=== PATIENT | female | born 1980 | race Caucasian/White ===

== ENCOUNTER 2019-12-08 20:36 | Emergency (ER) | payer OTHER ==
[2019-12-08] MEDS ORDERED: Sodium Chloride 0.9% 1,000 ML IV ONE (20:44)
[2019-12-08] MEDS ORDERED: Aspirin 81 MG Tab.Chew PO ONE (20:44)
[2019-12-08] MEDS ORDERED: Nitroglycerin 0.4 MG Tab.SL SL PRN (20:44)
--- NOTE | 2019-12-08 20:47 | EDM.PDOC ---
ED HPI GENERAL MEDICAL PROBLEM - General Chief Complaint: Chest Pain Stated Complaint: PRESSURE IN CHEST,LEFT ARM PAIN Time Seen by Provider: 12/08/19 20:40 Source of Information: Reports: Patient History Limitations: Reports: No Limitations - History of Present Illness INITIAL COMMENTS - FREE TEXT/NARRATIVE: HISTORY AND PHYSICAL: History of present illness: Patient is a 39-year-old female who presents to the emergency room with complaints of left chest wall pressure that radiates into her neck, shoulder and down her left arm. Symptoms started with a headache approximately an hour ago. She does not recall doing any strenuous activity. Nothing seems to make the "pressure" improve. She does feel slightly nauseated and lightheaded. She mentions she has a history of anxiety and believes this could be related although it does not feel the same as when she has had panic attacks previously. Patient denies any fever, chills, change in vision, syncope or near syncope. Denies any back pain, shortness of breath or cough. Denies any abdominal pain, vomiting, diarrhea, constipation or dysuria. Has not noted any blood in urine or stool. She reports there is a chance of , although unlikely. Patient has been eating and drinking appropriately. Patient has no personal history of heart disease. Review of systems: As per history of present illness and below otherwise all systems reviewed and negative. Past medical history: As per history of present illness and as reviewed below otherwise noncontributory. Surgical history: As per history of present illness and as reviewed below otherwise noncontributory. Social history: See social history for further information Family history: As per history of present illness and as reviewed below otherwise noncontributory. Physical exam: General: Well-developed and well-nourished 39-year-old female. Alert and oriented. Nontoxic-appearing and in no acute distress. HEENT: Atraumatic, normocephalic, pupils equal and reactive bilaterally, negative for conjunctival pallor or scleral icterus, mucous membranes moist, TMs normal bilaterally, throat clear, neck supple, nontender, trachea midline. No drooling or trismus noted. No meningeal signs. No hot potato voice noted. Lungs: Clear to auscultation, breath sounds equal bilaterally, chest nontender. Heart: S1S2, regular rate and rhythm without overt murmur Abdomen: Soft, nondistended, nontender. Negative for masses or hepatosplenomegaly. Negative for costovertebral tenderness. Pelvis: Stable nontender. Skin: Intact, warm, dry. No lesions or rashes noted. Extremities: Atraumatic, moves all extremities per self without difficulty or deficits, negative for cords or calf pain. Neurovascular unremarkable. Neuro: Awake, alert, oriented. Cranial nerves II through XII unremarkable. Cerebellum unremarkable. Motor and sensory unremarkable throughout. Exam nonfocal. Notes: Chest x-ray shows no acute findings. Patient did not find any relief with the nitroglycerin. She continues to state that it is a heavy pressure and not painful. Patient's lab work is unremarkable. She is asymptomatic with having a little bit of bacteria in her urine so a culture will be added at this time. We will call her with a prescription if needed. Her pain is a 0 out of 10. We did discuss the need for close follow-up with her primary care provider and/or drum sander setter. We reviewed signs and symptoms that would prompt her to return to the emergency department. Supportive care measures were reviewed and discussed. She voices understanding and is agreeable to plan of care. Denies any further questions or concerns at this time. Diagnostics: CBC, CMP, D.Dimer, Troponin, EKG, CXR, UA, HCGU, TSH Therapeutics: NS, Nitro Impression: Chest pain, unspecified Plan: 1. Today we checked your CBC, CMP (electrolyte/liver function), TSH, Troponin ( heart enzyme), D.Dimer (blood clot), urine, chest x-ray, and EKG : All of which were in normal limits. Your urine did show small amount of bacteria; a culture has been added. We will call you if this requires antibiotics. 2. I would like you to follow up with your primary care provider in the next week for re-evaluation and possibly set up appointment with drum sander setter. 3. If your chest pain should return, worsen, or new symptoms develop - PLEASE CALL 911 and return to the ED. Definitive disposition and diagnosis as appropriate pending reevaluation and review of above. Onset: Today Left Chest Pain Score (Numeric/FACES): 2 - Related Data Allergies Allergy/AdvReac Type Severity Reaction Status Date / Time No Known Allergies Allergy Verified 12/08/19 20:43 Home Meds: Home Meds Escitalopram Oxalate 10 mg PO DAILY 12/08/19 [History] atorvaSTATin Calcium [Atorvastatin Calcium] 20 mg PO DAILY 12/08/19 [History] ED ROS GENERAL - Review of Systems Review Of Systems: Comprehensive ROS is negative, except as noted in HPI. ED EXAM, GENERAL - Physical Exam Exam: See Below (See dictation) Course - Vital Signs Last Recorded V/S: Last Vital Signs Temp 97.4 F 12/08/19 20:41 Pulse 101 H 12/08/19 21:30 Resp 14 12/08/19 21:30 BP 132/77 12/08/19 21:30 Pulse Ox 96 12/08/19 21:30 - Orders/Labs/Meds Orders: Active Orders 24 hr Category Date Time Status EKG Documentation Completion [RC] STAT Care 12/08/19 20:44 Active CULTURE URINE [RM] Stat Lab 12/08/19 20:55 Received Nitroglycerin [Nitrostat] Med 12/08/19 20:44 Active 0.4 mg SL Q5M PRN Sodium Chloride 0.9% [Normal Saline] 1,000 ml Med 12/08/19 20:44 Active IV STAT Medication Orders Sodium Chloride (Normal Saline) 1,000 mls @ 999 mls/hr IV STAT ONE Stop: 12/08/19 21:44 Last Admin: 12/08/19 20:58 Dose: 999 mls/hr Nitroglycerin (Nitrostat) 0.4 mg SL Q5M PRN PRN Reason: Chest Pain Last Admin: 12/08/19 20:57 Dose: 0.4 mg Labs: Laboratory Tests 12/08/19 12/08/19 12/08/19 Range/Units 20:52 20:52 20:52 WBC 8.32 (4.0-11.0) K/uL RBC 4.34 (4.30-5.90) M/uL Hgb 12.8 (12.0-16.0) g/dL Hct 37.8 (36.0-46.0) % MCV 87.1 (80.0-98.0) fL MCH 29.5 (27.0-32.0) pg MCHC 33.9 (31.0-37.0) g/dL RDW Std Deviation 41.8 (28.0-62.0) fl RDW Coeff of Sarah 13 (11.0-15.0) % Plt Count 238 (150-400) K/uL MPV 11.10 (7.40-12.00) fL Neut % (Auto) 58.8 (48.0-80.0) % Lymph % (Auto) 34.6 (16.0-40.0) % Brule % (Auto) 4.1 (0.0-15.0) % Eos % (Auto) 2.3 (0.0-7.0) % Baso % (Auto) 0.2 (0.0-1.5) % Neut # (Auto) 4.9 (1.4-5.7) K/uL Lymph # (Auto) 2.9 H (0.6-2.4) K/uL Brule # (Auto) 0.3 (0.0-0.8) K/uL Eos # (Auto) 0.2 (0.0-0.7) K/uL Baso # (Auto) 0.0 (0.0-0.1) K/uL Nucleated RBC % 0.0 /100WBC Nucleated RBCs # 0 K/uL D-Dimer, Quantitative 0.46 (0.0-0.50) mg/L FEU Sodium 138 (136-145) mmol/L Potassium 3.6 (3.5-5.1) mmol/L Chloride 100 (98-107) mmol/L Carbon Dioxide 21.3 (21.0-32.0) mmol/L BUN 12 (7.0-18.0) mg/dL Creatinine 1.1 H (0.6-1.0) mg/dL Est Cr Clr Drug Dosing 58.71 mL/min Estimated GFR (MDRD) 55.0 ml/min Glucose 200 H (74-106) mg/dL Calcium 8.5 (8.5-10.1) mg/dL Total Bilirubin 0.3 (0.2-1.0) mg/dL AST 14 L (15-37) IU/L ALT 25 (14-63) IU/L Alkaline Phosphatase 85 (46-116) U/L Troponin I < 0.050 (0.000-0.056) ng/mL Total Protein 7.4 (6.4-8.2) g/dL Albumin 3.8 (3.4-5.0) g/dL Globulin 3.6 (2.6-4.0) g/dL Albumin/Globulin Ratio 1.1 (0.9-1.6) TSH 3rd Generation 1.73 (0.36-3.74) uIU/mL Urine Color Urine Appearance Urine pH (5.0-8.0) Ur Specific [place] (1.001-1.035) Urine Protein (NEGATIVE) mg/dL Urine Glucose (UA) (NEGATIVE) mg/dL Urine Ketones (NEGATIVE) mg/dL Urine Occult Blood (NEGATIVE) Urine Nitrite (NEGATIVE) Urine Bilirubin (NEGATIVE) Urine Urobilinogen (<2.0) EU/dL Ur Leukocyte Esterase (NEGATIVE) Urine RBC (0-2/HPF) Urine WBC (0-5/HPF) Ur Epithelial Cells (NONE-FEW) Urine Bacteria (NEGATIVE) Urine HCG, Qual (NEGATIVE) 12/08/19 12/08/19 Range/Units 20:55 20:55 WBC (4.0-11.0) K/uL RBC (4.30-5.90) M/uL Hgb (12.0-16.0) g/dL Hct (36.0-46.0) % MCV (80.0-98.0) fL MCH (27.0-32.0) pg MCHC (31.0-37.0) g/dL RDW Std Deviation (28.0-62.0) fl RDW Coeff of Sarah (11.0-15.0) % Plt Count (150-400) K/uL MPV (7.40-12.00) fL Neut % (Auto) (48.0-80.0) % Lymph % (Auto) (16.0-40.0) % Brule % (Auto) (0.0-15.0) % Eos % (Auto) (0.0-7.0) % Baso % (Auto) (0.0-1.5) % Neut # (Auto) (1.4-5.7) K/uL Lymph # (Auto) (0.6-2.4) K/uL Brule # (Auto) (0.0-0.8) K/uL Eos # (Auto) (0.0-0.7) K/uL Baso # (Auto) (0.0-0.1) K/uL Nucleated RBC % /100WBC Nucleated RBCs # K/uL D-Dimer, Quantitative (0.0-0.50) mg/L FEU Sodium (136-145) mmol/L Potassium (3.5-5.1) mmol/L Chloride (98-107) mmol/L Carbon Dioxide (21.0-32.0) mmol/L BUN (7.0-18.0) mg/dL Creatinine (0.6-1.0) mg/dL Est Cr Clr Drug Dosing mL/min Estimated GFR (MDRD) ml/min Glucose (74-106) mg/dL Calcium (8.5-10.1) mg/dL Total Bilirubin (0.2-1.0) mg/dL AST (15-37) IU/L ALT (14-63) IU/L Alkaline Phosphatase (46-116) U/L Troponin I (0.000-0.056) ng/mL Total Protein (6.4-8.2) g/dL Albumin (3.4-5.0) g/dL Globulin (2.6-4.0) g/dL Albumin/Globulin Ratio (0.9-1.6) TSH 3rd Generation (0.36-3.74) uIU/mL Urine Color YELLOW Urine Appearance SLT CLOUDY Urine pH 6.0 (5.0-8.0) Ur Specific [place] 1.010 (1.001-1.035) Urine Protein NEGATIVE (NEGATIVE) mg/dL Urine Glucose (UA) NEGATIVE (NEGATIVE) mg/dL Urine Ketones NEGATIVE (NEGATIVE) mg/dL Urine Occult Blood NEGATIVE (NEGATIVE) Urine Nitrite NEGATIVE (NEGATIVE) Urine Bilirubin NEGATIVE (NEGATIVE) Urine Urobilinogen 0.2 (<2.0) EU/dL Ur Leukocyte Esterase TRACE H (NEGATIVE) Urine RBC 0-1 (0-2/HPF) Urine WBC 2-4 (0-5/HPF) Ur Epithelial Cells FEW (NONE-FEW) Urine Bacteria FEW (NEGATIVE) Urine HCG, Qual NEGATIVE (NEGATIVE) Meds: Medications Generic Name Dose Route Start Last Admin Trade Name Freq PRN Reason Stop Dose Admin Sodium Chloride 1,000 mls @ 999 mls/hr 12/08/19 20:44 12/08/19 20:58 Normal Saline IV 12/08/19 21:44 999 mls/hr STAT ONE Administration Nitroglycerin 0.4 mg 12/08/19 20:44 06/05/20 20:57 Nitrostat SL 0.4 mg Q5M PRN Administration Chest Pain Discontinued Medications Generic Name Dose Route Start Last Admin Trade Name Kate PRN Reason Stop Dose Admin Aspirin 324 mg 12/08/19 20:44 12/08/19 20:57 Aspirin PO 12/08/19 20:45 324 mg ONETIME ONE Administration Departure - Departure Time of Disposition: 21:44 Disposition: Home, Self-Care 01 Clinical Impression: Chest pain, unspecified Qualifiers: Chest pain type: unspecified Qualified Code(s): R07.9 - Chest pain, unspecified Instructions: Nonspecific Chest Pain, Adult, [id number] Forms: ED Department Discharge Additional Instructions: The following information is given to patients seen in the emergency department who are being discharged to home. This information is to outline your options for follow-up care. We provide all patients seen in our emergency department with a follow-up referral. The need for follow-up, as well as the timing and circumstances, are variable depending upon the specifics of your emergency department visit. If you don't have a primary care physician on staff, we will provide you with a referral. We always advise you to contact your personal physician following an emergency department visit to inform them of the circumstance of the visit and for follow-up with them and/or the need for any referrals to a consulting specialist. The emergency department will also refer you to a specialist when appropriate. This referral assures that you have the opportunity for follow-up care with a specialist. All of these measure are taken in an effort to provide you with optimal care, which includes your follow-up. Under all circumstances we always encourage you to contact your private physician who remains a resource for coordinating your care. When calling for follow-up care, please make the office aware that this follow-up is from your recent emergency room visit. If for any reason you are refused follow-up, please contact the [facility] Emergency Department at and asked to speak to the emergency department charge nurse. [facility] Primary Care [address] [place] [id number] [address] [place] [address] 1. Today we checked your CBC (hemoglobin/white count), CMP (electrolyte/liver function), TSH (thyroid), Troponin (heart enzyme), D.Dimer (assess risk of blood clot), urine, chest x-ray, and EKG : All of which were in normal limits. Your urine did show small amount of bacteria; a culture has been added. We will call you if this requires antibiotics. 2. I would like you to follow up with your primary care provider in the next week for re-evaluation and possibly set up appointment with drum sander setter. 3. If your chest pain should return, worsen, or new symptoms develop - PLEASE CALL 911 and return to the ED. Sepsis Event Note - Evaluation Sepsis Screening Result: No Definite Risk - Focused Exam Vital Signs: Vital Signs Temp Pulse Resp BP BP Pulse Ox 12/08/19 21:30 101 H 14 132/77 96 12/08/19 20:57 157/98 H 12/08/19 20:41 97.4 F 109 H 20 157/98 H 97 Date Exam was Performed: 12/08/19 Time Exam was Performed: 21:43 - My Orders Last 24 Hours: My Active Orders 12/08/19 20:44 EKG Documentation Completion [RC] STAT Nitroglycerin [Nitrostat] 0.4 mg SL Q5M PRN Sodium Chloride 0.9% [Normal Saline] 1,000 ml IV STAT 12/08/19 20:55 CULTURE URINE [RM] Stat - Assessment/Plan Last 24 Hours: My Active Orders 12/08/19 20:44 EKG Documentation Completion [RC] STAT Nitroglycerin [Nitrostat] 0.4 mg SL Q5M PRN Sodium Chloride 0.9% [Normal Saline] 1,000 ml IV STAT 12/08/19 20:55 CULTURE URINE [RM] Stat
--- NOTE | 2019-12-08 21:18 | CR ---
Chest: Portable view of the chest was obtained. Comparison: No prior chest imaging is available. Heart size and mediastinum are normal. Lungs are clear with no acute parenchymal change. Bony structures are grossly intact. Impression: 1. Nothing acute is appreciated on portable chest x-ray. Diagnostic code #1 This report was dictated in MDT
[2019-12-08 21:35] LABS: BLOOD UREA NITROGEN,BUN 12 mg/dL (7.0-18.0); CARBON DIOXIDE,CO2 21.3 mmol/L (21.0-32.0); CHLORIDE,CL 100 mmol/L (98-107); GLUCOSE RANDOM 200 mg/dL (74-106); POTASSIUM,K 3.6 mmol/L (3.5-5.1); SODIUM,NA 138 mmol/L (136-145)
== END 2019-12-08 21:55 | disposition home or self-care (01) ==
LOC: MW.ED 20:36
DX: R07.89 Other chest pain (principal)
CPT/HCPCS: 36415; 71045; 80053; 81001; 81025; 84443; 84484; 85025; 85379; 87086; 87088; 87186; 93005; 99285; A9270; J7030; 99283

== ENCOUNTER 2021-03-06 12:37 | Emergency (ER) | payer OTHER ==
--- NOTE | 2021-03-06 15:11 | EDM.PDOC ---
ED HPI GENERAL MEDICAL PROBLEM - General Chief Complaint: General Stated Complaint: TESTED POSITIVE FOR COVID Time Seen by Provider: 03/06/21 14:54 Source of Information: Reports: Patient History Limitations: Reports: No Limitations - History of Present Illness INITIAL COMMENTS - FREE TEXT/NARRATIVE: 40-year-old female presents for shortness of breath and cough in setting of kn own COVID-19 infection. Patient first began feeling symptomatic 5 days ago. She went for testing 4 days ago. It was resulted yesterday is positive. Patient notes fevers, chills, shortness of breath, cough. - Related Data Allergies Allergy/AdvReac Type Severity Reaction Status Date / Time No Known Allergies Allergy Verified 03/06/21 14:06 Home Meds: Home Meds Escitalopram Oxalate 10 mg PO DAILY 12/08/19 [History] atorvaSTATin Calcium [Atorvastatin Calcium] 20 mg PO DAILY 12/08/19 [History] Past Medical History HEENT History: Reports: None Cardiovascular History: Reports: High Cholesterol Respiratory History: Reports: None BACK TUFTER History: Reports: Endometrial Ablation, Endometriosis, Musculoskeletal History: Reports: None Neurological History: Reports: None Psychiatric History: Reports: Anxiety Endocrine/Metabolic History: Reports: None Hematologic History: Reports: None Immunologic History: Reports: None Oncologic (Cancer) History: Reports: None Dermatologic History: Reports: None - Infectious Disease History Infectious Disease History: Reports: Chicken Pox - Past Surgical History Head Surgeries/Procedures: Reports: None GI Surgical History: Reports: Cholecystectomy Female Surgical History: Reports: Endometrial Ablation Social & Family History - Family History Family Medical History: No Pertinent Family History - Tobacco Use Tobacco Use Status *Q: Never Tobacco User Second Hand Smoke Exposure: No - Recreational Drug Use Recreational Drug Use: No ED ROS GENERAL - Review of Systems Review Of Systems: Comprehensive ROS is negative, except as noted in HPI. ED EXAM, GENERAL - Physical Exam Exam: See Below Exam Limited By: No Limitations General Appearance: Alert, WD/WN, No Apparent Distress Ears: Hearing Grossly Normal Throat/Mouth: Normal Voice, No Airway Compromise Head: Atraumatic, Normocephalic Neck: Normal Inspection Respiratory/Chest: No Respiratory Distress, Lungs Clear, Normal Breath Sounds, No Accessory Muscle Use Cardiovascular: Normal Peripheral Pulses, Regular Rate, Rhythm Extremities: Normal Inspection Neurological: Alert, Normal Cognition, Normal Gait Psychiatric: Normal Affect, Normal Mood Skin Exam: Warm, Dry, Intact, Normal Color Course - Vital Signs Last Recorded V/S: Last Vital Signs Temp 99.9 F 03/06/21 14:04 Pulse 112 H 03/06/21 14:59 Resp 18 03/06/21 14:59 BP 155/93 H 03/06/21 14:59 Pulse Ox 100 03/06/21 14:59 - Re-Assessments/Exams Free Text/Narrative Re-Assessment/Exam: 03/06/21 15:11 We will get chest x-ray to assess for Covid pneumonia. Will refer to infusion center for monoclonal antibody therapy as patient is high risk for serious illness secondary to obesity. 03/06/21 15:45 X-ray is unremarkable will discharge patient home with monoclonal antibody the rapy appointment tomorrow Departure - Departure Time of Disposition: 15:46 Disposition: Home, Self-Care 01 Condition: Good Clinical Impression: COVID - Discharge Information Instructions: COVID-19: What to Do if You Are Sick - [facility] [facility] Referrals: Sultana Ambrose [employer] [Primary Care Provider] - Forms: ED Department Discharge Additional Instructions: The following information is given to patients seen in the emergency department who are being discharged to home. This information is to outline your options for follow-up care. We provide all patients seen in our emergency department with a follow-up referral. The need for follow-up, as well as the timing and circumstances, are variable depending upon the specifics of your emergency department visit. If you don't have a primary care physician on staff, we will provide you with a referral. We always advise you to contact your personal physician following an emergency department visit to inform them of the circumstance of the visit and for follow-up with them and/or the need for any referrals to a consulting specialist. The emergency department will also refer you to a specialist when appropriate. This referral assures that you have the opportunity for follow-up care with a specialist. All of these measure are taken in an effort to provide you with optimal care, which includes your follow-up. Under all circumstances we always encourage you to contact your private physician who remains a resource for coordinating your care. When calling for follow-up care, please make the office aware that this follow-up is from your recent emergency room visit. If for any reason you are refused follow-up, please contact the [facility] Emergency Department at and asked to speak to the emergency department charge nurse. Please follow up with your primary care physician. If you do not have a primary care physician, see below: [facility] Primary [facility] [address] [place] [id number] [facility] [address] [place] [phone] [facility] [address] [place] [id number] Sepsis Event Note (ED) - Evaluation Sepsis Screening Result: No Definite Risk - Focused Exam Vital Signs: Vital Signs Temp Pulse Resp BP Pulse Ox 03/06/21 14:59 112 H 18 155/93 H 100 03/06/21 14:04 99.9 F 107 H 18 153/89 H 97
--- NOTE | 2021-03-06 15:24 | CR ---
CHEST 1 VIEW AP INDICATION: COVID-19 positive IMPRESSION: Normal heart size and vascular pattern. Lungs are clear of focal opacities. No pneumothorax or pleural abnormality. Dictated by You Osorio MD @ 03/06/2021 3:23:33 PM (Electronically Signed)
== END 2021-03-06 15:58 | disposition home or self-care (01) ==
LOC: MW.ED 12:37
DX: U07.1 COVID-19 (principal); E78.00 Pure hypercholesterolemia, unspecified; Z79.899 Other long term (current) drug therapy
CPT/HCPCS: 71045; 71045-26; 99284-25